=== PATIENT | female | born 1975 | race African-American/Black ===

== ENCOUNTER 2021-02-21 15:58 | Inpatient (IN) | payer BC ==
[2021-02-21 16:53] LABS: #Eosinphils 0.1 10x3/uL (0.0-0.5); #Monocytes 0.3 10x3/uL (0.0-1.1); #Neutrophils 4.6 10x3/uL (1.5-8.4); %Basophils 0.3 % (0.0-2.0); %Eosinophils 0.9 % (0.0-6.0); %Lymphocytes 27.1 % (18.0-47.0); %Monocytes 4.8 % (0.0-10.0); %Neutrophils 66.5 % (40.0-75.0); Hemoglobin 10.7 g/dL (12.0-15.5); Mean Corpuscular HGB CONC 30.7 g/dL (32.0-36.0); Mean Corpuscular Hemoglobin 19.3 pg (27.0-33.0); Mean Corpuscular Volume 62.9 fl (81.6-98.3); Platelet Count 176 10x3/uL (150-450); Red Blood Cell (RBC) Count 5.53 10x6/uL (3.90-5.03); White Blood Cell (WBC) Count 6.9 10x3/uL (3.5-10.5)
[2021-02-21 17:01] LABS: Pregnancy Test - Urine (BHCG) Negative (Negative); Pregu Control Background? CLEAR/WHITE (CLR/WHITE); Pregu Control Bar Appear? YES (CONTROL BAR); Specific Gravity 1.015 (1.002-1.036)
[2021-02-21 17:05] LABS: ALT (SGPT) 8 U/L (8-55); AST (SGOT) 6 U/L (5-34); Albumin 3.2 g/dL (3.5-5.0); Alkaline Phosphatase 108 U/L (40-110); Anion Gap 11 mmol/L (10-20); BUN (Urea Nitrogen) 10 mg/dL (7.0-18.7); Bilirubin, Total 0.2 mg/dL (0.2-1.2); Calc. Creatinine Clearance 0 mL/min (70-130); Calcium 8.8 mg/dL (7.8-10.44); Carbon Dioxide 28 mmol/L (22-29); Chloride 99 mmol/L (98-107); Globulin 3.8 g/dL (2.4-3.5); Glucose 401 mg/dL (70-105); Potassium 3.9 mmol/L (3.5-5.1); Sodium 134 mmol/L (136-145)
[2021-02-21] MEDS ORDERED: Acetaminophen 500 MG TAB ONE (17:06)
[2021-02-21 17:10] LABS: Microcytosis MODERATE=15-30 cells (100X) (0-5/hpf); Ovalocytes SLIGHT = 2-5 cells (100X) (0-1/hpf)
[2021-02-21 17:11] LABS: Platelet Morphology Comment Appears Adequate
[2021-02-21] MEDS ORDERED: Morphine 4 MG/ML VIAL ONE (17:17)
[2021-02-21] MEDS ORDERED: Ondansetron PF 4 MG/2 ML Vial ONE (17:22)
[2021-02-21 17:59] LABS: Cardiac Risk 3.1 (Less than 4.5)
[2021-02-21] MEDS ORDERED: Morphine 4 MG/ML VIAL SLOW IVP PRN (19:46)
[2021-02-21] MEDS ORDERED: Morphine 2 MG/ML VIAL SLOW IVP PRN (19:46)
[2021-02-21] MEDS ORDERED: Labetalol HCl 100 MG/20 ML VIAL SLOW IVP PRN (19:46)
[2021-02-21] MEDS ORDERED: Ondansetron PF 4 MG/2 ML Vial IVP PRN (19:56)
[2021-02-21] MEDS ORDERED: Pantoprazole 40 MG VIAL IVP SCH (20:00)
[2021-02-21 21:06] LABS: Anion Gap 11 mmol/L (10-20); BUN (Urea Nitrogen) 10 mg/dL (7.0-18.7); Calc. Creatinine Clearance 0 mL/min (70-130); Calcium 8.9 mg/dL (7.8-10.44); Carbon Dioxide 25 mmol/L (22-29); Chloride 101 mmol/L (98-107); Glucose 319 mg/dL (70-105); Magnesium 1.5 mg/dL (1.6-2.6); Sodium 133 mmol/L (136-145)
[2021-02-21] MEDS: Sodium Chloride 0.9% 1,000 ML IV SCH ×2 (21:38→23:41)
[2021-02-21] MEDS ORDERED: HumaLOG 300 UNITS/3 ML VIAL SC SCH (23:00)
[2021-02-21 23:23] LABS: Troponin I Less than 0.010 ng/mL (< 0.028)
[2021-02-21] MEDS: Potassium Chloride 20 MEQ in Lactated Ringer's 1,000 ML IV SCH (23:41)
[2021-02-22 01:51] VITALS: BMI 69.7
[2021-02-22] MEDS ORDERED: NS 0.9% w/ 20 MEQ KCL 1,000 ML/1,000 ML BAG IV SCH (02:00)
[2021-02-22] MEDS: Potassium Chloride 20 MEQ in Lactated Ringer's 1,000 ML IV SCH (02:37)
[2021-02-22] MEDS ORDERED: Dextrose 50% Abboject 50 ML SYRINGE SLOW IVP PRN (04:05)
[2021-02-22] MEDS ORDERED: HumaLOG 300 UNITS/3 ML VIAL SC PRN (04:05)
[2021-02-22] MEDS ORDERED: Dextrose 5% in Water 1,000 ML IV PRN (04:05)
[2021-02-22] MEDS ORDERED: HumaLOG 300 UNITS/3 ML VIAL SC SCH (04:15)
[2021-02-22] MEDS ORDERED: Ketorolac Tromethamine 30 MG/ML VIAL IVP SCH (05:00)
[2021-02-22 05:52] LABS: ALT (SGPT) 7 U/L (8-55); AST (SGOT) 6 U/L (5-34); Alkaline Phosphatase 81 U/L (40-110); Anion Gap 9 mmol/L (10-20); BUN (Urea Nitrogen) 9 mg/dL (7.0-18.7); Bilirubin, Total 0.3 mg/dL (0.2-1.2); Calc. Creatinine Clearance 290 mL/min (70-130); Carbon Dioxide 25 mmol/L (22-29); Chloride 104 mmol/L (98-107); Glucose 221 mg/dL (70-105); Lipase 202 U/L (8-78); Potassium 3.8 mmol/L (3.5-5.1); Sodium 134 mmol/L (136-145)
[2021-02-22] MEDS ORDERED: Enoxaparin Sodium 40 MG/0.4 ML SYRINGE SC SCH (09:00)
[2021-02-22] MEDS: Lantus 1000 UNITS/10 ML VIAL SC SCH ×2 (09:50→12:16)
[2021-02-22] MEDS ORDERED: Magnesium Sulfate 2 GM in Sodium Chloride 0.9% 100 ML IVPB SCH (10:30)
[2021-02-22] MEDS ORDERED: Magnesium 2 GM/50 ML 2 GM in Premix Bag 1 BAG IVPB SCH (10:45)
[2021-02-22 11:32] VITALS: BP 154/89; TEMP 98.2
[2021-02-22 16:42] LABS: SARS-CoV-2 PCR by NAA Not Detected (NotDetected)
== END 2021-02-22 14:12 | disposition home or self-care (01) | DRG 439 ==
LOC: CSHERS 15:58 → CSHPP 20:56 → CSHTELE 02-22 00:39
PROVIDERS: ADMIT Family Medicine; ATTEND Hospitalist
DX: K85.90 Acute pancreatitis without necrosis or infection, unspecified (principal); Z68.44 Body mass index [BMI] 60.0-69.9, adult; Z20.822 Contact with and (suspected) exposure to COVID-19; E66.9 Obesity, unspecified; I10 Essential (primary) hypertension; Z90.49 Acquired absence of other specified parts of digestive tract; F17.210 Nicotine dependence, cigarettes, uncomplicated; Z79.4 Long term (current) use of insulin; Z79.899 Other long term (current) drug therapy; Z83.3 Family history of diabetes mellitus; Z82.49 Family history of ischemic heart disease and other diseases of the circulatory system; D50.9 Iron deficiency anemia, unspecified; E11.65 Type 2 diabetes mellitus with hyperglycemia
CPT/HCPCS: 36415; 36416; 71045; 74177; 80048; 80053; 80061; 81025; 82247; 83690; 83735; 83880; 84075; 84443; 84450; 84460; 84484; 85025; 85379; 87635; 93005; 93010; 96374; 96375; C9113; J1650; J1815; J1885; J2270; J2405; J3480; U0003; U0005

== ENCOUNTER 2021-10-16 01:37 | Emergency (ER) | payer BC ==
[2021-10-16] MEDS ORDERED: Bupivacaine PF 0.5% 30 ML VIAL ONE (02:15)
== END 2021-10-16 02:44 | disposition home or self-care (01) ==
LOC: CSHERS 01:37
DX: K04.7 Periapical abscess without sinus (principal); E11.9 Type 2 diabetes mellitus without complications; I10 Essential (primary) hypertension; E66.9 Obesity, unspecified; F17.210 Nicotine dependence, cigarettes, uncomplicated
CPT/HCPCS: 64400; S0020

== ENCOUNTER 2021-10-21 15:28 | Emergency (ER) | payer BC ==
[2021-10-21] MEDS ORDERED: Morphine 4 MG/ML VIAL ONE (18:22)
[2021-10-21] MEDS ORDERED: Ondansetron PF 4 MG/2 ML Vial ONE (18:22)
[2021-10-21 18:37] LABS: BHCG - Serum Negative (NEGATIVE); Pregs Control Background? CLEAR/WHITE (CLR/WHITE); Pregs Control Bar Appear? YES (CONTROL BAR)
[2021-10-21 18:41] LABS: #Eosinphils 0.1 10x3/uL (0.0-0.5); #Monocytes 0.4 10x3/uL (0.0-1.1); #Neutrophils 4.2 10x3/uL (1.5-8.4); %Basophils 0.4 % (0.0-2.0); %Lymphocytes 33.6 % (18.0-47.0); %Monocytes 5.1 % (0.0-10.0); %Neutrophils 59.2 % (40.0-75.0); Hemoglobin 12.2 g/dL (12.0-15.5); Mean Corpuscular HGB CONC 30.9 g/dL (32.0-36.0); Mean Corpuscular Hemoglobin 20.2 pg (27.0-33.0); Mean Corpuscular Volume 65.4 fl (81.6-98.3); Platelet Count 237 10x3/uL (150-450); Red Blood Cell (RBC) Count 6.04 10x6/uL (3.90-5.03); White Blood Cell (WBC) Count 7.1 10x3/uL (3.5-10.5)
[2021-10-21 18:46] LABS: ALT (SGPT) 8 U/L (8-55); AST (SGOT) 10 U/L (5-34); Albumin 3.8 g/dL (3.5-5.0); Alkaline Phosphatase 123 U/L (40-110); Anion Gap 15 mmol/L (10-20); BUN (Urea Nitrogen) 9 mg/dL (7.0-18.7); Bilirubin, Total 0.3 mg/dL (0.2-1.2); Calc. Creatinine Clearance 0 mL/min (70-130); Calcium 9.1 mg/dL (7.8-10.44); Carbon Dioxide 23 mmol/L (22-29); Chloride 102 mmol/L (98-107); Globulin 4.2 g/dL (2.4-3.5); Glucose 251 mg/dL (70-105); Potassium 4.2 mmol/L (3.5-5.1); Sodium 136 mmol/L (136-145)
== END 2021-10-21 20:43 | disposition home or self-care (01) ==
LOC: CSHERS 15:28
DX: M27.2 Inflammatory conditions of jaws (principal); E11.9 Type 2 diabetes mellitus without complications; I10 Essential (primary) hypertension; E66.9 Obesity, unspecified; F17.210 Nicotine dependence, cigarettes, uncomplicated
CPT/HCPCS: 36415; 70492; 80053; 84703; 85025; 96374; 96375; J2270; J2405

== ENCOUNTER 2022-02-14 07:33 | Outpatient (CLI) | payer BC ==
[2022-02-14] MEDS ORDERED: Iopamidol 300 61% 100 ML VIAL FS ONE (09:44)
== END 2022-02-14 07:34 | disposition home or self-care (01) ==
LOC: CSHCT 07:33
PROVIDERS: ATTEND Student in an Organized Health Care Education/Training Program
DX: K04.7 Periapical abscess without sinus (principal); R59.0 Localized enlarged lymph nodes
CPT/HCPCS: 70491

== ENCOUNTER 2022-03-14 17:01 | Emergency (ER) | payer BC | END 2022-03-14 18:05 | disposition home or self-care (01) | LOC: CSHERS 17:01 | DX: S90.122A Contusion of left lesser toe(s) without damage to nail, initial encounter (principal); E11.9 Type 2 diabetes mellitus without complications; Z79.4 Long term (current) use of insulin; I10 Essential (primary) hypertension; F17.210 Nicotine dependence, cigarettes, uncomplicated; W22.8XXA Striking against or struck by other objects, initial encounter ==

== ENCOUNTER 2022-04-09 15:42 | Emergency (ER) | payer BC ==
[2022-04-09] MEDS ORDERED: Ketorolac Tromethamine 30 MG/ML VIAL ONE (17:02)
== END 2022-04-09 17:09 | disposition home or self-care (01) ==
LOC: CSHERS 15:42
DX: M79.602 Pain in left arm (principal); E11.9 Type 2 diabetes mellitus without complications; Z79.4 Long term (current) use of insulin; I10 Essential (primary) hypertension; F17.210 Nicotine dependence, cigarettes, uncomplicated; Z79.84 Long term (current) use of oral hypoglycemic drugs; Z79.899 Other long term (current) drug therapy
CPT/HCPCS: 93005; 96372; J1885

== ENCOUNTER 2022-05-07 17:35 | Emergency (ER) | payer BC ==
[~2022-05-07 17:35] MED LIST: Iopamidol 300 61% 100 ML VIAL FS ONE
[2022-05-07] MEDS ORDERED: Morphine 4 MG/ML VIAL ONE (18:11)
[2022-05-07] MEDS ORDERED: Ondansetron PF 4 MG/2 ML Vial ONE (18:11)
[2022-05-07 18:39] LABS: #Eosinphils 0.1 10x3/uL (0.0-0.5); #Monocytes 0.4 10x3/uL (0.0-1.1); #Neutrophils 4.9 10x3/uL (1.5-8.4); %Basophils 0.3 % (0.0-2.0); %Eosinophils 0.8 % (0.0-6.0); %Lymphocytes 32.2 % (18.0-47.0); %Monocytes 4.6 % (0.0-10.0); %Neutrophils 61.3 % (40.0-75.0); Hemoglobin 11.6 g/dL (12.0-15.5); Mean Corpuscular HGB CONC 30.9 g/dL (32.0-36.0); Mean Corpuscular Hemoglobin 20.2 pg (27.0-33.0); Mean Corpuscular Volume 65.3 fl (81.6-98.3); Platelet Count 216 10x3/uL (150-450); RBC Distribution Width 18.8 % (11.5-14.5); Red Blood Cell (RBC) Count 5.74 10x6/uL (3.90-5.03)
[2022-05-07 18:45] LABS: BHCG - Serum Negative (NEGATIVE); Pregs Control Background? CLEAR/WHITE (CLR/WHITE); Pregs Control Bar Appear? YES (CONTROL BAR)
[2022-05-07 18:53] LABS: ALT (SGPT) 10 U/L (8-55); AST (SGOT) 8 U/L (5-34); Albumin 3.6 g/dL (3.5-5.0); Alkaline Phosphatase 120 U/L (40-110); Anion Gap 12 mmol/L (10-20); BUN (Urea Nitrogen) 11 mg/dL (7.0-18.7); Bilirubin, Total 0.3 mg/dL (0.2-1.2); Calc. Creatinine Clearance 0 mL/min (70-130); Calcium 9.7 mg/dL (7.8-10.44); Carbon Dioxide 25 mmol/L (22-29); Chloride 101 mmol/L (98-107); Estimated GFR 73; Globulin 4.1 g/dL (2.4-3.5); Glucose 330 mg/dL (70-105); Lipase 21 U/L (8-78); Potassium 4.1 mmol/L (3.5-5.1); Protein, Total 7.7 g/dL (6.0-8.3); Sodium 134 mmol/L (136-145)
[2022-05-07 18:58] LABS: Anisocytosis SLIGHT = 6-15 cells (100X) (0-5/hpf); Hypochromia SLIGHT = 6-15 cells (100X) (0-5/hpf); Microcytosis SLIGHT = 6-15 cells (100X) (0-5/hpf); Ovalocytes SLIGHT = 2-5 cells (100X) (0-1/hpf)
[2022-05-07 18:59] LABS: Bilirubin Neg (Negative); Blood, Urine Negative (Negative); Clarity Clear (Clear); Glucose, Urine (Dipstick) >=1000 mg/dL (Negative); Ketone, Urine Negative (Negative); Leukocyte Negative (Negative); Nitrite Negative (Negative); Protein, Urine (Dipstick) Negative (Neg-Trace); Specific Gravity, Urine 1.015 (1.002-1.036); Urobilinogen Normal mg/dL (Less than 2)
[2022-05-07 18:59] LABS: Platelet Morphology Comment Appears Adequate
== END 2022-05-07 20:45 | disposition home or self-care (01) ==
LOC: CSHERS 17:35
DX: E27.9 Disorder of adrenal gland, unspecified (principal); R10.31 Right lower quadrant pain; R16.0 Hepatomegaly, not elsewhere classified; E11.9 Type 2 diabetes mellitus without complications; I10 Essential (primary) hypertension; F17.210 Nicotine dependence, cigarettes, uncomplicated
CPT/HCPCS: 74177; 80053; 81003; 83690; 84703; 85025; 96361; 96374; 96375; J2270; J2405; Q9967

== ENCOUNTER 2022-05-19 13:06 | Outpatient (CLI) | payer BC | END 2022-05-19 13:07 | disposition home or self-care (01) | LOC: CSHULT 13:06 | PROVIDERS: ATTEND Student in an Organized Health Care Education/Training Program | DX: M25.512 Pain in left shoulder (principal); R20.0 Anesthesia of skin; R29.898 Other symptoms and signs involving the musculoskeletal system; D17.22 Benign lipomatous neoplasm of skin and subcutaneous tissue of left arm | CPT/HCPCS: 76999 ==

== ENCOUNTER 2022-06-11 11:17 | Emergency (ER) | payer BC | END 2022-06-11 12:55 | disposition home or self-care (01) | LOC: CSHERS 11:17 | DX: S41.012D Laceration without foreign body of left shoulder, subsequent encounter (principal); E11.9 Type 2 diabetes mellitus without complications; I10 Essential (primary) hypertension; F17.210 Nicotine dependence, cigarettes, uncomplicated; X58.XXXD Exposure to other specified factors, subsequent encounter ==

== ENCOUNTER 2022-07-02 22:33 | Emergency (ER) | payer BC | END 2022-07-02 23:40 | disposition home or self-care (01) | LOC: CSHERS 22:33 | DX: U07.1 COVID-19 (principal); E11.9 Type 2 diabetes mellitus without complications; I10 Essential (primary) hypertension; E66.9 Obesity, unspecified; F17.210 Nicotine dependence, cigarettes, uncomplicated; Z79.84 Long term (current) use of oral hypoglycemic drugs; Z79.899 Other long term (current) drug therapy | CPT/HCPCS: 99281; U0003; U0005 ==

== ENCOUNTER 2022-07-27 08:33 | Emergency (ER) | payer BC | END 2022-07-27 10:05 | disposition home or self-care (01) | LOC: CSHERS 08:33 | DX: L02.416 Cutaneous abscess of left lower limb (principal); I10 Essential (primary) hypertension; E11.9 Type 2 diabetes mellitus without complications; F17.210 Nicotine dependence, cigarettes, uncomplicated | CPT/HCPCS: 10060 ==

== ENCOUNTER 2022-11-14 21:24 | Emergency (ER) | payer BC | END 2022-11-14 23:30 | disposition home or self-care (01) | LOC: CSHERS 21:24 | DX: M62.838 Other muscle spasm (principal); F17.210 Nicotine dependence, cigarettes, uncomplicated; E11.9 Type 2 diabetes mellitus without complications; I10 Essential (primary) hypertension; Z79.899 Other long term (current) drug therapy; Z79.4 Long term (current) use of insulin; Z79.84 Long term (current) use of oral hypoglycemic drugs | CPT/HCPCS: 99283 ==

== ENCOUNTER 2023-02-07 19:14 | Emergency (ER) | payer BC | END 2023-02-07 20:59 | disposition left against medical advice (07) | LOC: CSHERS 19:14 | DX: Z53.21 Procedure and treatment not carried out due to patient leaving prior to being seen by health care provider (principal) ==

== ENCOUNTER 2023-04-30 21:19 | Emergency (ER) | payer BC ==
[2023-04-30 23:04] LABS: #Monocytes 0.3 10x3/uL (0.0-1.1); %Basophils 0.4 % (0.0-2.0); %Eosinophils 0.6 % (0.0-6.0); %Lymphocytes 28.6 % (18.0-47.0); Hemoglobin 11.8 g/dL (12.0-15.5); Mean Corpuscular HGB CONC 31.3 g/dL (32.0-36.0); Mean Corpuscular Hemoglobin 20.6 pg (27.0-33.0); Mean Corpuscular Volume 65.8 fl (81.6-98.3); Platelet Count 171 10x3/uL (150-450); RBC Distribution Width 18.1 % (11.5-14.5); Red Blood Cell (RBC) Count 5.73 10x6/uL (3.90-5.03); White Blood Cell (WBC) Count 4.8 10x3/uL (3.5-10.5)
[2023-04-30 23:14] LABS: ALT (SGPT) 12 U/L (8-55); AST (SGOT) 10 U/L (5-34); Albumin 3.5 g/dL (3.5-5.0); Alkaline Phosphatase 101 U/L (40-110); Anion Gap 15 mmol/L (10-20); BUN (Urea Nitrogen) 10 mg/dL (7.0-18.7); Bilirubin, Total 0.3 mg/dL (0.2-1.2); Calc. Creatinine Clearance 0 mL/min (70-130); Calcium 8.8 mg/dL (7.8-10.44); Carbon Dioxide 23 mmol/L (22-29); Chloride 100 mmol/L (98-107); Estimated GFR 86; Globulin 3.6 g/dL (2.4-3.5); Glucose 239 mg/dL (70-105); Potassium 3.8 mmol/L (3.5-5.1); Protein, Total 7.1 g/dL (6.0-8.3); Sodium 134 mmol/L (136-145)
[2023-05-01 00:06] LABS: SARS-CoV-2 NAA Rapid Test Not Detected (NotDetected)
[2023-05-01 00:06] LABS: Hypochromia SLIGHT = 6-15 cells (100X) (0-5/hpf); Microcytosis SLIGHT = 6-15 cells (100X) (0-5/hpf); Ovalocytes SLIGHT = 2-5 cells (100X) (0-1/hpf); Polychromasia SLIGHT = 2-3 cells (100X) (0-2/hpf); Tear Drops SLIGHT = 2-5 cells (100X) (0-1/hpf)
[2023-05-01 00:07] LABS: Platelet Adequacy Comment Appears Adequate
[2023-05-01] MEDS ORDERED: Ipratropium/Albuterol 3 ML NEB ONE (00:17)
== END 2023-05-01 00:20 | disposition home or self-care (01) ==
LOC: CSHERS 21:19
DX: R06.02 Shortness of breath (principal); Z20.822 Contact with and (suspected) exposure to COVID-19
CPT/HCPCS: 36415; 71045; 80053; 83605; 83880; 84484; 85025; 93005; J7620

== ENCOUNTER 2023-05-03 22:27 | Emergency (ER) | payer BC ==
[2023-05-04 00:53] LABS: Color Of CSF Supernatant COLORLESS (Colorless); Tube # 2; Unspun CSF Color COLORLESS (Colorless)
[2023-05-04 01:06] LABS: CSF, Glucose 171 mg/dL (40-70); CSF, Protein 30 mg/dL (15-40)
[2023-05-04 01:57] LABS: Clarity Clear (Clear); Tube # 1
[2023-05-04 02:13] LABS: CSF RBC Count - Manual 149 /cu.mm (None Seen); CSF WBC/NonHematics Count-Man 16 /cu.mm (0-5)
[2023-05-04 02:15] LABS: CSF Source CSF
[2023-05-04 02:26] LABS: CSF Source CSF; Clarity Clear (Clear); Tube # 4
[2023-05-04 02:32] LABS: CSF RBC Count - Manual 8 /cu.mm (None Seen); CSF WBC/NonHematics Count-Man 6 /cu.mm (0-5)
[2023-05-04 02:54] LABS: Cell Count Non Hematic 13 %; Lymphocytes 84 %; Segmented Neutrophils 3 %
== END 2023-05-04 02:24 | disposition home or self-care (01) ==
LOC: CSHERS 22:27
DX: R51.9 Headache, unspecified (principal); M54.2 Cervicalgia; E11.9 Type 2 diabetes mellitus without complications; I10 Essential (primary) hypertension
CPT/HCPCS: 62270; 82945; 84157; 85060; 87070; 87205; 89051

== ENCOUNTER 2023-11-28 17:01 | Emergency (ER) | payer BC ==
[2023-11-28] MEDS ORDERED: Acetaminophen 500 MG TAB ONE (17:36)
[2023-11-28] MEDS ORDERED: Ketorolac Tromethamine 30 MG (1 mL) VIAL ONE (17:57)
[2023-11-28 18:02] LABS: ALT (SGPT) 8 U/L (8-55); AST (SGOT) 11 U/L (5-34); Albumin 3.4 g/dL (3.5-5.0); Alkaline Phosphatase 103 U/L (40-110); Anion Gap 12 mmol/L (10-20); BUN (Urea Nitrogen) 12 mg/dL (7.0-18.7); Bilirubin, Total 0.2 mg/dL (0.2-1.2); Calc. Creatinine Clearance 0 mL/min (70-130); Calcium 8.8 mg/dL (7.8-10.44); Carbon Dioxide 26 mmol/L (22-29); Chloride 102 mmol/L (98-107); Estimated GFR 71; Globulin 3.7 g/dL (2.4-3.5); Glucose 196 mg/dL (70-105); Potassium 3.8 mmol/L (3.5-5.1); Protein, Total 7.1 g/dL (6.0-8.3); Sodium 136 mmol/L (136-145)
[2023-11-28 18:06] LABS: #Eosinphils 0.1 10x3/uL (0.0-0.5); #Monocytes 0.6 10x3/uL (0.0-1.1); #Neutrophils 3.9 10x3/uL (1.5-8.4); %Basophils 0.5 % (0.0-2.0); %Eosinophils 0.8 % (0.0-6.0); %Lymphocytes 22.3 % (18.0-47.0); %Monocytes 9.3 % (0.0-10.0); %Neutrophils 65.7 % (40.0-75.0); Hematocrit 34.8 % (34.9-44.5); Hemoglobin 10.9 g/dL (12.0-15.5); Mean Corpuscular HGB CONC 31.3 g/dL (32.0-36.0); Mean Corpuscular Volume 67.1 fl (81.6-98.3); Platelet Count 157 10x3/uL (150-450); RBC Distribution Width 18.1 % (11.5-14.5); Red Blood Cell (RBC) Count 5.19 10x6/uL (3.90-5.03); White Blood Cell (WBC) Count 5.9 10x3/uL (3.5-10.5)
[2023-11-28 18:31] LABS: Influenza A by NAA DETECTED (NotDetected); Influenza B by NAA Not Detected (NotDetected); SARS-CoV-2 NAA Rapid Test Not Detected (NotDetected)
== END 2023-11-28 18:55 | disposition home or self-care (01) ==
LOC: CSHERS 17:01
DX: J11.1 Influenza due to unidentified influenza virus with other respiratory manifestations (principal); E86.0 Dehydration; E11.9 Type 2 diabetes mellitus without complications; F17.210 Nicotine dependence, cigarettes, uncomplicated; I10 Essential (primary) hypertension
CPT/HCPCS: 36415; 71045; 80053; 85025; 87804; 96361; 96374; J1885

== ENCOUNTER 2024-05-21 17:25 | Emergency (ER) | payer BC ==
[2024-05-21] MEDS ORDERED: Lidocaine 1% (PF) 30 ML VIAL ONE (18:52)
== END 2024-05-21 20:19 | disposition home or self-care (01) ==
LOC: CSHERS 17:25
DX: L73.2 Hidradenitis suppurativa (principal); I10 Essential (primary) hypertension; E11.9 Type 2 diabetes mellitus without complications; F17.210 Nicotine dependence, cigarettes, uncomplicated; Z79.899 Other long term (current) drug therapy; Z79.84 Long term (current) use of oral hypoglycemic drugs
CPT/HCPCS: 99283; J2001

== ENCOUNTER 2024-08-27 16:17 | Emergency (ER) | payer BC | END 2024-08-27 17:15 | disposition home or self-care (01) | LOC: CSHERS 16:17 | DX: M79.645 Pain in left finger(s) (principal); E11.9 Type 2 diabetes mellitus without complications; F17.210 Nicotine dependence, cigarettes, uncomplicated; I10 Essential (primary) hypertension; Z79.4 Long term (current) use of insulin | CPT/HCPCS: 99283 ==

== ENCOUNTER 2024-09-07 22:06 | Emergency (ER) | payer BC ==
[2024-09-07 23:04] LABS: #Basophils 0.03 10x3/uL (0.0-0.2); #Eosinophils 0.06 10x3/uL (0.0-0.5); #Monocytes 0.37 10x3/uL (0.0-1.1); #Neutrophils 5.43 10x3/uL (1.5-8.4); %Basophils 0.4 % (0.0-2.0); %Eosinophils 0.7 % (0.0-6.0); %Monocytes 4.5 % (0.0-10.0); %Neutrophils 66.2 % (40.0-75.0); Hematocrit 35.5 % (34.9-44.5); Hemoglobin 11.2 g/dL (12.0-15.5); Mean Corpuscular HGB CONC 31.5 g/dL (32.0-36.0); Mean Corpuscular Hemoglobin 21.3 pg (27.0-33.0); Mean Corpuscular Volume 67.6 fL (81.6-98.3); Platelet Count 205 10x3/uL (150-450); RBC Distribution Width 16.7 % (11.5-14.5); Red Blood Cell (RBC) Count 5.25 10x6/uL (3.90-5.03); White Blood Cell (WBC) Count 7.7 10x3/uL (3.5-10.5)
[2024-09-07 23:11] LABS: Anion Gap 11 mmol/L (10-20); BUN (Urea Nitrogen) 10 mg/dL (7.0-18.7); Calc. Creatinine Clearance 0 mL/min (70-130); Calcium 9.1 mg/dL (7.8-10.44); Carbon Dioxide 27 mmol/L (22-29); Chloride 101 mmol/L (98-107); Estimated GFR 76; Glucose 331 mg/dL (70-105); Potassium 3.9 mmol/L (3.5-5.1); Sodium 135 mmol/L (136-145)
== END 2024-09-08 00:51 | disposition home or self-care (01) ==
LOC: CSHERS 22:06
DX: R04.2 Hemoptysis (principal); E11.9 Type 2 diabetes mellitus without complications; I10 Essential (primary) hypertension; F17.210 Nicotine dependence, cigarettes, uncomplicated; Z79.85 Long-term (current) use of injectable non-insulin antidiabetic drugs; Z79.4 Long term (current) use of insulin; Z79.899 Other long term (current) drug therapy
CPT/HCPCS: 36415; 71045; 71260; 80048; 85025; 85379; 93005

== ENCOUNTER 2024-10-03 21:43 | Emergency (ER) | payer BC | END 2024-10-03 23:17 | disposition home or self-care (01) | LOC: CSHERS 21:43 | DX: J18.9 Pneumonia, unspecified organism (principal); E11.9 Type 2 diabetes mellitus without complications; I10 Essential (primary) hypertension; F17.210 Nicotine dependence, cigarettes, uncomplicated; Z79.899 Other long term (current) drug therapy; Z79.85 Long-term (current) use of injectable non-insulin antidiabetic drugs; Z79.4 Long term (current) use of insulin | CPT/HCPCS: 71045 ==

== ENCOUNTER 2025-05-18 14:25 | Emergency (ER) | payer BC | END 2025-05-18 16:19 | disposition home or self-care (01) | LOC: CSHERS 14:25 | DX: J20.9 Acute bronchitis, unspecified (principal); E11.9 Type 2 diabetes mellitus without complications; I10 Essential (primary) hypertension; E66.9 Obesity, unspecified; F17.210 Nicotine dependence, cigarettes, uncomplicated | CPT/HCPCS: 71045 ==

== ENCOUNTER 2025-06-14 19:06 | Emergency (ER) | payer BC ==
[2025-06-14] MEDS ORDERED: predniSONE 20 MG TAB ONE (20:16)
== END 2025-06-14 20:35 | disposition home or self-care (01) ==
LOC: CSHERS 19:06
DX: J45.909 Unspecified asthma, uncomplicated (principal); J06.9 Acute upper respiratory infection, unspecified; B97.89 Other viral agents as the cause of diseases classified elsewhere; E11.9 Type 2 diabetes mellitus without complications; I10 Essential (primary) hypertension; F17.210 Nicotine dependence, cigarettes, uncomplicated; Z79.899 Other long term (current) drug therapy
CPT/HCPCS: 87428; J7512; J7620

== ENCOUNTER 2025-07-10 08:51 | Outpatient (CLI) | payer BC | END 2025-07-10 08:52 | disposition home or self-care (01) | LOC: CSHMAMMO 08:51 | PROVIDERS: ATTEND Emergency Medicine | DX: Z12.31 Encounter for screening mammogram for malignant neoplasm of breast (principal) | CPT/HCPCS: 77063; 77067 ==

== ENCOUNTER 2025-09-08 12:43 | Outpatient (CLI) | payer BC | END 2025-09-08 12:44 | disposition home or self-care (01) | LOC: CSHMRI 12:43 | PROVIDERS: ATTEND Nurse Practitioner Family | DX: M54.16 Radiculopathy, lumbar region (principal); M48.061 Spinal stenosis, lumbar region without neurogenic claudication; M48.08 Spinal stenosis, sacral and sacrococcygeal region; M54.18 Radiculopathy, sacral and sacrococcygeal region | CPT/HCPCS: 72148 ==